=== PATIENT | male | born 2000 | race Caucasian/White ===

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

== ENCOUNTER 2020-07-10 14:40 | Emergency (ER) | payer BC, OTHER ==
[~2020-07-10] VITALS: Ht 190.5 cm; Wt 70.3 kg
[~2020-07-10 14:40] MED LIST: MOBIC7.5 MG PO; SERTRALINE HCL50 MG PO; VYVANSE40 MG PO
[2020-07-10 14:59] VITALS: BP 96/60
== END 2020-07-10 17:07 | disposition home or self-care (01) ==
LOC: ER 14:40
DX: S93.402A Sprain of unspecified ligament of left ankle, initial encounter (principal); Z79.899 Other long term (current) drug therapy; Z91.010 Allergy to peanuts; X58.XXXA Exposure to other specified factors, initial encounter; Y93.51 Activity, roller skating (inline) and skateboarding; Y92.89 Other specified places as the place of occurrence of the external cause; Y99.8 Other external cause status